=== PATIENT | female | born 1935 | race Caucasian/White ===

== ENCOUNTER 2018-09-11 21:30 | Emergency (ER) | payer MEDICARE, MEDICAID, OTHER ==
[2018-09-11] MEDS: ONDANSETRON (ODT) 4 MG TAB ODT (23:11)
[2018-09-11] MEDS: HYDROCODONE/APAP (5/325) TAB PO (23:11)
[2018-09-12] MEDS: ACETAMINOPHEN 500 MG TAB PO (01:32)
== END 2018-09-12 01:32 | disposition home or self-care (01) ==
LOC: E/R 09-12 01:32
DX: S40.011A Contusion of right shoulder, initial encounter (principal); E03.9 Hypothyroidism, unspecified; S09.90XA Unspecified injury of head, initial encounter; W10.9XXA Fall (on) (from) unspecified stairs and steps, initial encounter; Y92.9 Unspecified place or not applicable
CPT/HCPCS: 70450; 73030-RT; 99284-25